=== PATIENT | male | born 1970 | race Caucasian/White ===

== ENCOUNTER → 2016-10-15 | Outpatient (CLI) | payer BC, MEDICARE ==
[~2016-10-15] MED LIST: AMLO5TAB2 PO; CHLORTHALIDONE PO; GABA300C10 PO; LOSA100T6 PO; OXYC20TA2 PO
[2016-10-15 13:54] LABS: BLOOD UREA NITROGEN 17 mg/dL (7-18)
[2016-10-15 13:57] LABS: ASPARTATE AMINO TRANSFERASE 20 U/L (15-37)
== END | disposition home or self-care (01) ==
LOC: STAR 12:12
PROVIDERS: ATTEND Neurological Surgery
DX: Z01.818 Encounter for other preprocedural examination (principal); M54.12 Radiculopathy, cervical region
CPT/HCPCS: 36415; 71020; 80053; 85025; 85610; 85730; 93005

== ENCOUNTER → 2017-02-04 | Outpatient (CLI) | payer BC, MEDICARE ==
[~2017-02-04] MED LIST changes: +CALC300T5 PO; +CHOL2000 PO; +METH750T87 PO; +SENN1TAB94 PO
== END | disposition home or self-care (01) ==
LOC: RAD 15:26
PROVIDERS: ATTEND Neurological Surgery
DX: M43.16 Spondylolisthesis, lumbar region (principal); Z98.890 Other specified postprocedural states; Z98.1 Arthrodesis status; Z87.828 Personal history of other (healed) physical injury and trauma
CPT/HCPCS: 72082

== ENCOUNTER → 2017-03-03 | Outpatient (CLI) | payer BC, MEDICARE ==
[~2017-03-03] MED LIST changes: +ATROPINE SYRINGE 0.1 MG/ML, 10ML ONE; +DOBUTAMINE/D5W PMX 250 ML ONE; +ESMOLOL 100 MG/10 ML ONE; +NITROGLYCERIN 0.4 MG BOTTLE (25 TABS) SL ONE
== END | disposition home or self-care (01) ==
LOC: CARD 10:15
PROVIDERS: ATTEND Neurological Surgery
DX: Z01.818 Encounter for other preprocedural examination (principal); J98.9 Respiratory disorder, unspecified; R94.31 Abnormal electrocardiogram [ECG] [EKG]
CPT/HCPCS: 93017; 93350; J0461; J1250

== ENCOUNTER → 2017-03-05 | Outpatient (CLI) | payer BC, MEDICARE ==
[~2017-03-05] MED LIST changes: -ATROPINE SYRINGE 0.1 MG/ML, 10ML ONE; -DOBUTAMINE/D5W PMX 250 ML ONE; -ESMOLOL 100 MG/10 ML ONE; -NITROGLYCERIN 0.4 MG BOTTLE (25 TABS) SL ONE
== END | disposition home or self-care (01) ==
LOC: CARD 13:04
PROVIDERS: ATTEND Neurological Surgery
DX: J98.9 Respiratory disorder, unspecified (principal); R94.31 Abnormal electrocardiogram [ECG] [EKG]
CPT/HCPCS: 94010; 94726; 94729

== ENCOUNTER → 2017-03-05 | Outpatient (CLI) | payer BC, MEDICARE | END | disposition home or self-care (01) | LOC: CFH 10:53 | PROVIDERS: ATTEND Neurological Surgery | DX: Z13.820 Encounter for screening for osteoporosis (principal); M85.88 Other specified disorders of bone density and structure, other site | CPT/HCPCS: 77080 ==

== ENCOUNTER → 2017-03-09 | Outpatient (CLI) | payer BC, MEDICARE | END | disposition home or self-care (01) | LOC: RAD 15:38 | PROVIDERS: ATTEND Neurological Surgery | DX: M48.07 Spinal stenosis, lumbosacral region (principal); M51.26 Other intervertebral disc displacement, lumbar region; M47.896 Other spondylosis, lumbar region; Z98.1 Arthrodesis status; Z98.890 Other specified postprocedural states | CPT/HCPCS: 72131 ==

== ENCOUNTER → 2017-08-18 | Outpatient (CLI) | payer BC, MEDICARE | LOC: RAD 11:22 | PROVIDERS: ATTEND Neurological Surgery | DX: M41.9 Scoliosis, unspecified (principal); Z98.890 Other specified postprocedural states | CPT/HCPCS: 72082 ==

== ENCOUNTER → 2018-02-24 | Outpatient (CLI) | payer BC, MEDICARE ==
[~2018-02-24] MED LIST changes: -AMLO5TAB2 PO; +AMLO5TAB7 PO; -LOSA100T6 PO; +LOSA100T7 PO
== END | disposition home or self-care (01) ==
LOC: RAD 15:16
PROVIDERS: ATTEND Neurological Surgery
DX: M43.22 Fusion of spine, cervical region (principal); M41.9 Scoliosis, unspecified
CPT/HCPCS: 72082